=== PATIENT | male | born 1995 ===

== ENCOUNTER 2024-01-12 15:08 | Emergency (ER) | payer OTHER ==
[~2024-01-12] VITALS: Ht 180.3 cm; Wt 100.0 kg
[2024-01-12 15:21] VITALS: BP 107/58; PULSE 62; RESP 18; TEMP 98.5; O2SAT 99
== END 2024-01-12 20:26 | disposition left against medical advice (07) ==
LOC: EMS 15:09
DX: R10.31 Right lower quadrant pain (principal); R11.2 Nausea with vomiting, unspecified; Z53.21 Procedure and treatment not carried out due to patient leaving prior to being seen by health care provider